=== PATIENT | female | born 1995 | race Caucasian/White ===

== ENCOUNTER 2022-09-14 14:23 | Emergency (ER) | payer SELFPAY ==
[~2022-09-14] VITALS: Ht 154.9 cm; Wt 56.7 kg
[2022-09-14 14:31] VITALS: BP 122/67
[2022-09-14 15:36] LABS: APPEARANCE,URINE CLEAR (CLEAR); BILIRUBIN,URINE NEGATIVE (NEGATIVE); BLOOD, URINE NEGATIVE (NEGATIVE); COLOR,URINE YELLOW (YELLOW); LEUKOCYTE ESTERASE ,URINE NEGATIVE (NEGATIVE); NITRITE, URINE NEGATIVE (NEGATIVE); UGLUCOSE NEGATIVE (NEGATIVE)
[2022-09-14] MEDS ORDERED: CEPH-588 PO (16:14)
[2022-09-14] MEDS ORDERED: PYR100 PO (16:14)
--- NOTE | 2022-09-14 16:34 | NUR ---
Patient discharged with v/s stable. Written and verbal after care instructions given and explained. Patient alert, oriented and verbalized understanding of instructions. Ambulatory with steady gait. All questions addressed prior to discharge. ID band removed. Patient advised to follow up with PMD. Rx of KEFLEX, PYRIDIUM given. Patient educated on indication of medication including possible reaction and side effects. Opportunity to ask questions provided and answered.
== END 2022-09-14 16:33 | disposition home or self-care (01) ==
LOC: MED 14:23
DX: R30.0 Dysuria (principal)
CPT/HCPCS: 81003; 81025; 87086; 99283